=== PATIENT | male | born 1980 | race Caucasian/White ===

== ENCOUNTER 2020-02-07 17:29 | Emergency (ER) | payer OTHER ==
[~2020-02-07] VITALS: Ht 198.1 cm; Wt 111.1 kg
[2020-02-07 18:17] LABS: ABSOLUTE BASOPHILS 0.1 thou/uL (0.0-0.2); ABSOLUTE EOSINOPHILS 0.2 thou/uL (0.0-0.7); ABSOLUTE LYMPHOCYTES 2.9 thou/uL (0.8-5.3); ABSOLUTE MONOCYTES 0.9 thou/uL (0.0-1.2); ABSOLUTE NEUTROPHILS 5.4 thou/uL (1.6-8.1); EOSINOPHILS 2.3 %; HEMATOCRIT 42.5 % (42.0-52.0); LYMPHOCYTES 30.5 %; MCH 33.9 pg (26.0-34.0); MCHC 35.2 g/dL (28.0-37.0); MCV 96.3 fL (80.0-100.0); MONOCYTES 9.5 %; MPV 10.2 fl. (7.2-11.1); NUCLEATED RBCS 0 /100WBC; PLATELET COUNT* 152 thou/uL (150-400); POLYS 56.7 %; RBC 4.42 mil/uL (4.50-6.00); WBC 9.5 thou/uL (4.0-11.0)
[2020-02-07 18:25] LABS: CALCIUM 8.5 mg/dL (8.5-10.1); CREATININE 0.9 mg/dL (0.6-1.3); POTASSIUM 3.6 mmol/L (3.5-5.1)
[2020-02-07 18:30] LABS: ALBUMIN 3.6 g/dL (3.4-5.0); TOTAL BILIRUBIN 0.2 mg/dL (<0.1-1.0); TOTAL PROTEIN 6.6 g/dL (6.4-8.2)
[2020-02-07] MEDS ORDERED: NORCO 5-325 TA1 EAC2 PO (19:47)
[2020-02-07] MEDS ORDERED: IBUPROFEN 800800 M1 PO (19:47)
[2020-02-07 20:09] VITALS: BP 136/86
[2020-02-11] MEDS ORDERED: BUTALB-APAP-CA1 EACH PO (17:17)
[2020-02-11] MEDS ORDERED: MEDROLDOSEPACK PO (17:17)
[2020-02-11] MEDS ORDERED: LORATIDINE 10 M10 M1 PO (17:17)
== END 2020-02-07 20:10 | disposition home or self-care (01) ==
LOC: M.ERS 17:29
PROVIDERS: Nurse Practitioner Family
DX: R51 Headache (principal); C44.311 Basal cell carcinoma of skin of nose; Z88.0 Allergy status to penicillin